=== PATIENT | male | born 1965 | race African-American/Black ===

== ENCOUNTER 2022-03-24 08:40 | Emergency (ER) | payer OTHER ==
[2022-03-24 09:12] LABS: Bilirubin Negative (Negative); Blood, Urine Trace (Negative); Glucose, Urine (Dipstick) Normal (Negative); Ketone, Urine Trace mg/dL (Negative); Leukocyte 500 Leu/uL (Negative); Nitrite Negative (Negative); Protein, Urine (Dipstick) 50 mg/dL (Neg-Trace); Squamous Epithelial 0-3 HPF (0-3); WBC/HPF Greater than 50 HPF (0-3); pH, Urine 6.5 (5.0-9.0)
[2022-03-24 09:13] LABS: Bacteria/HPF 1+ HPF (None Seen); Clarity Cloudy (Clear)
[2022-03-24] MEDS ORDERED: cefTRIAXone\\ROCEPHIN 500 MG VIAL ONE (10:02)
[2022-03-24] MEDS ORDERED: Lidocaine 1% PF 5 ML VIAL ONE (10:03)
[2022-03-24 16:36] LABS: Chlam.trachomatis by PCR,Urine Not Detected (NotDetected)
== END 2022-03-24 10:32 | disposition home or self-care (01) ==
LOC: ERS 08:40
DX: N34.2 Other urethritis (principal); Z87.891 Personal history of nicotine dependence
CPT/HCPCS: 81003; 81015; 87491; 87591; 96372; 99283; J0696